=== PATIENT | female | born 2000 | race Caucasian/White ===

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

== ENCOUNTER 2022-08-18 11:36 | Outpatient (CLI) | payer OTHER, SELFPAY ==
--- NOTE | ~2022-08-18 | US_ITS ---
US axilla LT 08/18/2022 12:28 Indication: Enlarged lymph nodes. Procedure: High-resolution Limited ultrasound of the left axilla Comparison: No prior studies for comparison. Findings: There are normal-appearing left axillary lymph nodes, the largest measuring 11 mm. No suspi cious masses to suggest malignancy. Impression: 1: Normal left axillary lymph nodes. BI-RADS CATEGORY 1 - NEGATIVE Reviewed, dictated and finalized at location A. Impression: 1: Normal left axillary lymph nodes. BI-RADS CATEGORY 1 - NEGATIVE
[2022-08-18 12:08] LABS: Hematocrit 40.1 % (37.0-47.0); Hemoglobin 12.7 g/dL (12.0-15.0); Mean Corpuscular HGB Conc 31.7 g/dl (32-36); Mean Corpuscular Hemoglobin 27.6 pg (26-34); Mean Corpuscular Volume 87.2 fl (80-100); Mean Platelet Volume 10.4 fl (7.4-10.4); Platelet Count Result 289 k/mm3 (150-375); Red Cell Distribution Width 13.4 % (11.5-14.5); White Blood Count 10.8 K/mm3 (4.5-10.0)
== END 2022-08-18 11:37 | disposition home or self-care (01) ==
PROVIDERS: PCP Nurse Practitioner; Visit Provider Nurse Practitioner
DX: R59.0 Localized enlarged lymph nodes (principal)
CPT/HCPCS: 36415; 76882; 85027

== ENCOUNTER 2022-09-03 10:24 | Emergency (ER) | payer OTHER, SELFPAY ==
[2022-09-03 10:37] VITALS: BP 136/95; PULSE 95; RESP 16; TEMP 37; O2SAT 100
--- NOTE | 2022-09-03 10:55 | ED.GENADULT ---
HPI - General Adult General Chief complaint: Ear Stated complaint: ear pain/ringing, headache, congestion Time Seen by Provider: 09/03/22 10:46 Source: patient Mode of arrival: ambulatory Limitations: no limitations History of Present Illness HPI narrative: Patient presents today complaining of a one-week history of bilateral ear pain and pressure, nasal congestion, and frontal headache. Denies any fever cough. She has been using [id number] nasal spray without much relief. Related Data Home Medications Medication Instructions Recorded Confirmed drospirenone 3 mg-ethinyl tablet 09/03/22 estradiol 0.02 mg tablet sertraline 100 mg tablet mg 09/03/22 Allergies Allergy/AdvReac Type Severity Reaction Status Date / Time amoxicillin Allergy Severe hives Verified 09/03/22 10:36 Review of Systems Review of Systems: CONSTITUTIONAL: Denies body aches, fever, chills, or sweats. EYES: Denies visual changes, redness, or discharge. ENT: Denies rhinorrhea, sore throat. + Congestion, bilateral ear pain CARDIOVASCULAR: Denies chest pain, palpitations, or edema. RESPIRATORY: Denies cough or dyspnea. GASTROINTESTINAL: Denies abdominal pain, nausea, vomiting, or diarrhea. GENITOURINARY: Denies dysuria or hematuria. SKIN: Denies rash, itching, or wounds. MUSCULOSKELETAL: Denies back pain, joint pain, or myalgia. NEUROLOGIC: Denies numbness, tingling, or weakness.+ headache PSYCH: Denies depression or anxiety. [facility] Past Medical History Medical History (Updated 09/03/22 @ 11:00 by Rachell Kumar, MADELYN, ) Anxiety Bakers cyst Ear infection Surgical History Surgical History Hx of removal of cyst Family History Family History Grandparent Diabetes mellitus Heart disease Hypertension Leukemia Mother Hyperlipidemia due to dietary fat intake Father Hyperlipidemia due to dietary fat intake Hypertension Social History Social History Smoking status: Never smoker Second hand tobacco smoke exposure: No Alcohol intake: never Substance use: never Substance use type: does not use Gender identity (if verbalized by the patient): Female Comments At time of signature, I have reviewed and agree with nursing past medical, surgical, social and family history unless otherwise noted. Please see nursing chart for further information. There is no relevant family history pertinent to the presenting complaint Exam Narrative: GENERAL: Well-appearing, well-nourished, and in no acute distress. HEAD: Normocephalic, atraumatic. EYES: EOMI. No redness or drainage. Conjunctivae normal. ENT: Mucous membranes pink and moist. Nares clear. No rhinorrhea. TMs normal bilaterally with bilateral serous effusions. no frontal or maxillary sinus tenderness. Throat normal. Uvula midline. NECK: Normal AROM. Supple. No lymphadenopathy. CHEST: No respiratory distress. Clear to auscultation. HEART: Regular rate and rhythm. No murmur appreciated. Normal peripheral pulses. EXTREMITIES: Normal range of motion. No edema. SKIN: Warm, dry, no rash. Capillary refill normal. Normal skin turgor. NEURO: No focal deficits. Alert and oriented x3. Gait steady. PSYCH: Normal affect. No signs of depression or anxiety. Course Course Level of Care: Express Care Visit Vital Signs Vital signs: Vital Signs Temperature 98.6 F 09/03/22 10:37 Pulse Rate 95 09/03/22 10:37 Respiratory Rate 16 09/03/22 10:37 Blood Pressure 136/95 H 09/03/22 10:37 Pulse Oximetry 100 09/03/22 10:37 Oxygen Delivery Room Air 09/03/22 10:37 Temperature 98.6 F 09/03/22 10:37 Pulse Rate 95 09/03/22 10:37 Respiratory Rate 16 09/03/22 10:37 Blood Pressure 136/95 H 09/03/22 10:37 Pulse Oximetry 100 09/03/22 10:37 Oxygen Delivery Room A
== END 2022-09-03 11:04 | disposition home or self-care (01) ==
PROVIDERS: Emergency Provider Nurse Practitioner; PCP Nurse Practitioner
DX: J06.9 Acute upper respiratory infection, unspecified (principal)
CPT/HCPCS: 99211; G0463

== ENCOUNTER 2023-01-02 18:19 | Emergency (ER) | payer OTHER, SELFPAY ==
[2023-01-02 18:29] VITALS: BP 139/59; PULSE 109; RESP 16; TEMP 36.7; O2SAT 98
--- NOTE | 2023-01-02 18:44 | ED.URI ---
HPI - URI/Sore Throat General Chief Complaint: Upper Respiratory Infection Stated Complaint: wheezing,shortness of breath,cough,congestion Source: patient and RN notes reviewed History of Present Illness HPI Narrative: 22-year-old female presents to urgent care with complaints of productive cough and wheezing the last 3 days. Patient reports some right ear discomfort. denies any fevers, chills, shortness of breath, chest pain, headache, sore throat vomiting. Patient has used Flonase at home with Minimal relief. Some parts of this dictation were generated by voice recognition software and may contain typographical and/or grammatical inaccuracies. Related Data Home Medications Medication Instructions Recorded Confirmed drospirenone 3 mg-ethinyl 1 tablet PO DAILY 09/03/22 09/03/22 estradiol 0.02 mg tablet sertraline 100 mg tablet 100 mg PO DAILY 09/03/22 09/03/22 Allergies Allergy/AdvReac Type Severity Reaction Status Date / Time amoxicillin Allergy Severe hives Verified 09/03/22 10:36 Review of Systems Review of Systems: Pertinent positives and pertinent negatives per HPI. [facility] Past Medical History Medical History (Updated 01/02/23 @ 18:45 by Margo Irene, ROSE) Anxiety Bakers cyst Ear infection Surgical History Surgical History Hx of removal of cyst Family History Family History Grandparent Diabetes mellitus Heart disease Hypertension Leukemia Mother Hyperlipidemia due to dietary fat intake Father Hyperlipidemia due to dietary fat intake Hypertension Social History Social History Smoking status: Never smoker Second hand tobacco smoke exposure: No Alcohol intake: never Substance use: never Substance use type: does not use Gender identity (if verbalized by the patient): Female Comments At the time of my signature, I reviewed and agree with the nursing past medical, surgical, social, and family history. There is no relevant family history pertinent to the patient complaint. Exam Narrative: GENERAL: This is a well-nourished, well-developed patient, in no apparent distress. HEAD: normocephalic, atraumatic. EYES: PERRL. Sclera clear/white. Vision is grossly intact. EARS: External ears normal, auditory canals clear and without drainage, TMs normal without perforation. Hearing grossly intact. NOSE: External nose normal with no obvious nasal discharge, nares without redness, no rhinorrhea. THROAT: Mucous membranes moist, posterior pharynx clear. NECK: Neck supple, non-tender without lymphadenopathy, masses or thyromegaly. CARDIOVASCULAR: Regular rate and rhythm without murmurs, gallops, or rubs. RESPIRATORY: Clear to auscultation. Breath sounds equal bilaterally. No wheezes, rales, or rhonchi. GASTROINTESTINAL: Abdomen soft, non-tender, nondistended. Bowel sounds are active. No hepato-splenomegaly, or palpable masses. No guarding. SKIN: warm, intact with no suspicious lesions or rash, good texture and turgor. NEURO: awake, alert, and oriented to person, place and time. There were no obvious focal neurologic abnormalities. Course Course Level of Care: Express Care Visit Vital Signs Vital signs: Vital Signs Temperature 98.1 F 01/02/23 18:29 Pulse Rate 109 H 01/02/23 18:29 Respiratory Rate 16 01/02/23 18:29 Blood Pressure 139/59 L 01/02/23 18:29 Pulse Oximetry 98 01/02/23 18:29 Oxygen Delivery Room Air 01/02/23 18:29 Temperature 98.1 F 01/02/23 18:29 Pulse Rate 109 H 01/02/23 18:29 Respiratory Rate 16 01/02/23 18:29 Blood Pressure 139/59 L 01/02/23 18:29 Pulse Oximetry 98 01/02/23 18:29 Oxygen Delivery Room Air 01/02/23 18:29 reviewed MDM - URI/Sore Throat MDM Narrative Medical decision making narrative: Take steroids as directed. May
== END 2023-01-02 18:47 | disposition home or self-care (01) ==
PROVIDERS: Emergency Provider Nurse Practitioner Family; PCP Nurse Practitioner
DX: J40 Bronchitis, not specified as acute or chronic (principal)
CPT/HCPCS: 99213; G0463

== ENCOUNTER 2023-02-09 17:59 | Emergency (ER) | payer OTHER, SELFPAY ==
--- NOTE | ~2023-02-09 | XR_ITS ---
EXAMINATION: XR foot LT min 3V DATE: 02/09/2023 18:19 INDICATION: Left foot pain. Injury. TECHNIQUE: 4 views of left foot were obtained. COMPARISON: Left ankle radiographs 04/27/2018 FINDINGS: Bone alignment is normal. No fracture. Joint spaces are well maintained. IMPRESSION: 1. Normal left foot. Reviewed, dictated and finalized at location E. IMPRESSION: 1. Normal left foot.
[2023-02-09 18:21] VITALS: BP 135/73; PULSE 119; RESP 16; TEMP 36.8; O2SAT 98
--- NOTE | 2023-02-09 18:22 | ED.LOWEXIN ---
HPI - Extremity Injury (Lower) General Chief Complaint: Extremity Injury, Lower Stated Complaint: INJURED L FOOT Time Seen by Provider: 02/09/23 18:22 Source: patient Mode of arrival: ambulatory Limitations: no limitations History of Present Illness HPI Narrative: 22-year-old female presents with complaint of pain swelling, bruising to dorsal aspect of left foot. Patient reports that she just got a new 40 oz [employer] metal cup. She filled it with ice and water and then it slipped out of her hands and dropped on to left foot. Ambulatory with slight limp. Patient concerned for fracture. Range of motion decreased due to pain. Distal neurovascularly intact. All systems reviewed and negative except as noted above. Related Data Home Medications Medication Instructions Recorded Confirmed drospirenone 3 mg-ethinyl 1 tablet PO DAILY 09/03/22 02/09/23 estradiol 0.02 mg tablet sertraline 100 mg tablet 100 mg PO DAILY 09/03/22 02/09/23 Allergies Allergy/AdvReac Type Severity Reaction Status Date / Time amoxicillin Allergy Severe hives Verified 09/03/22 10:36 Review of Systems Review of Systems: CONSTITUTIONAL: Denies fever, chills, or sweats. EYES: Denies visual changes, redness, or discharge. ENT: Denies rhinorrhea, congestion, sore throat, or otalgia. CARDIOVASCULAR: Denies chest pain, palpitations, or edema. RESPIRATORY: Denies cough or dyspnea. GASTROINTESTINAL: Denies abdominal pain, nausea, vomiting, or diarrhea. GENITOURINARY: Denies dysuria or hematuria. SKIN: Denies rash or itching. MUSCULOSKELETAL: Reports pain, swelling and bruising to dorsal aspect left foot. NEUROLOGIC: Denies headache, numbness, or weakness. PSYCHIATRIC: Denies anxiety or depression. All other systems reviewed are negative, except as documented in HPI. [facility] Past Medical History Medical History (Updated 02/09/23 @ 18:31 by Ashley Troncoso NP) Anxiety Bakers cyst Ear infection Surgical History Surgical History Hx of removal of cyst Family History Family History Grandparent Diabetes mellitus Heart disease Hypertension Leukemia Mother Hyperlipidemia due to dietary fat intake Father Hyperlipidemia due to dietary fat intake Hypertension Social History Social History Smoking status: Never smoker Second hand tobacco smoke exposure: No Alcohol intake: never Substance use: never Substance use type: does not use Gender identity (if verbalized by the patient): Female Comments At time of signature, agree with nursing past medical, surgical, social and family history. There is no relevant family history pertinent to the presenting complaint. Exam Narrative: GENERAL: This is a well-nourished, well-developed patient, in no apparent distress. HEAD: normocephalic, atraumatic. EYES: PERRL. Sclera clear/white. Vision is grossly intact. EARS: External ears normal NOSE: External nose normal NECK: Neck supple, non-tender without lymphadenopathy, masses or thyromegaly. CARDIOVASCULAR: Regular rate and rhythm without murmurs, gallops, or rubs. RESPIRATORY: Clear to auscultation. Breath sounds equal bilaterally. No wheezes, rales, or rhonchi. SKIN: warm, Dry, intact with no suspicious lesions or rash, good texture and turgor. NEURO: awake, alert, and oriented to person, place and time. There were no obvious focal neurologic abnormalities. EXTREMITIES: Swelling and bruising noted to dorsal aspect left foot. Tender on palpation to 2nd 3rd 4th metatarsals. Distal neurovascularly intact. Range of motion decreased due to pain. Course Course Level of Care: Express Care Visit Vital Signs Vital signs: Vital Signs Temperature 36.8 C 02/09/23 18:21 Pulse Rate 119 H 02/09/23 18:21 Respiratory Rate 16 02/09/23 18:
== END 2023-02-09 18:37 | disposition home or self-care (01) ==
PROVIDERS: Emergency Provider Nurse Practitioner Family; PCP Nurse Practitioner
DX: S90.32XA Contusion of left foot, initial encounter (principal); W20.8XXA Other cause of strike by thrown, projected or falling object, initial encounter; F41.9 Anxiety disorder, unspecified
CPT/HCPCS: 73630; 99213; G0463

== ENCOUNTER 2023-06-15 17:45 | Emergency (ER) | payer OTHER, SELFPAY ==
[2023-06-15 18:02] VITALS: BP 144/73; PULSE 100; RESP 18; TEMP 36.7; O2SAT 98
--- NOTE | 2023-06-15 18:16 | ED.FEMALEGU ---
HPI - Female Genitourinary General Chief complaint: Urogenital-Female Stated complaint: Urinary Problems Source: patient and RN notes reviewed Mode of arrival: ambulatory Limitations: no limitations History of Present Illness HPI Narrative: 22-year-old female presents concern for bladder pressure for several days. She denies frequency, urgency, dysuria. She reports her last menstrual period was normal in was 2 weeks ago. She reports she did have some spotting couple of days ago. She denies abnormal vaginal discharge, itching. She denies chance of , reports she is on control in [facility]. She reports normal bowel movements, denies constipation. She denies nausea, vomiting, fever, chills, sweats, back pain MD elicited complaint: UTI Related Data Home Medications Medication Instructions Recorded Confirmed sertraline 100 mg tablet 100 mg PO DAILY 09/03/22 06/15/23 norethindrone 1 mg-ethinyl 1 tablet PO DAILY 06/15/23 06/15/23 estradiol 20 mcg (24)-iron 75 mg (4) tablet (Anabelle 24 Fe) Allergies Allergy/AdvReac Type Severity Reaction Status Date / Time amoxicillin Allergy Severe hives Verified 06/15/23 17:50 Review of Systems Review of Systems: CONSTITUTIONAL: Denies malaise, chills, sweats, or fever. CARDIOVASCULAR: Denies chest pain, palpitations, or edema. RESPIRATORY: Denies cough or dyspnea. GASTROINTESTINAL: Denies abdominal pain, nausea, vomiting, diarrhea GENITOURINARY: Reports dysuria, frequency, urgency, suprapubic pressure. Denies flank pain or hematuria. SKIN: Denies rash or itching. MUSCULOSKELETAL: Denies back pain or myalgia. All systems reviewed & are unremarkable except as noted in HPI and below PMFSH Past Medical History Medical History (Updated 06/15/23 @ 18:18 by Pamela Kim NP) Anxiety Bakers cyst Ear infection Surgical History Surgical History Hx of removal of cyst Family History Family History Grandparent Diabetes mellitus Heart disease Hypertension Leukemia Mother Hyperlipidemia due to dietary fat intake Father Hyperlipidemia due to dietary fat intake Hypertension Social History Social History Smoking status: Never smoker Second hand tobacco smoke exposure: No Alcohol intake: never Substance use: never Substance use type: does not use Gender identity (if verbalized by the patient): Female Comments At time of signature, agree with nursing past medical, surgical, social and family history. There is no relevant family history pertinent to the presenting complaint Exam Narrative: GENERAL: Well-appearing, well-nourished, and in no acute distress. HEAD: Normocephalic. EYES: PERRLA, conjunctivae clear. NECK: Supple. No lymphadenopathy CHEST: Clear to auscultation. No respiratory distress. HEART: Regular rate and rhythm. ABDOMEN: Soft, nontender upon palpation, nondistended, normal active bowel sounds, no palpable or pulsatile masses, no guarding. No CVA tenderness SKIN: Warm, dry, no rash. NEURO: Alert and oriented x3. PSYCH: Normal mood and affect Course Course Emergency Course: Patient's urinalysis and exam were normal. Patient was advised to follow-up with her primary care provider or Gynecology if her symptoms persist. Patient is aware of diagnosis, understands and agrees to treatment plan. Anticipatory guidance given. Patient agrees to follow-up as directed and is aware of reasons to seek care at the emergency department. Portions of this record may have been created with voice recognition software Level of Care: Express Care Visit Vital Signs Vital signs: Vital Signs Temperature 98.1 F 06/15/23 18:02 Pulse Rate 100 06/15/23 18:02 Respiratory Rate 18 06/15/23 18:02 Blood Pressure 144/73 H 06/15/23 18:02
== END 2023-06-15 18:20 | disposition home or self-care (01) ==
PROVIDERS: Emergency Provider Nurse Practitioner; PCP Nurse Practitioner
DX: R10.30 Lower abdominal pain, unspecified (principal); F41.9 Anxiety disorder, unspecified
CPT/HCPCS: 81003; 99212; G0463

== ENCOUNTER 2023-10-14 19:08 | Emergency (ER) | payer OTHER, SELFPAY ==
[2023-10-14 19:16] VITALS: BP 110/50; PULSE 106; RESP 16; TEMP 36.7; O2SAT 96
--- NOTE | 2023-10-14 19:17 | ED.GENADULT ---
HPI - General Adult General Chief complaint: Ear Stated complaint: Ear pain Source: patient, RN notes reviewed and old records reviewed Mode of arrival: ambulatory Limitations: no limitations History of Present Illness HPI narrative: 23-year-old female presents to [facility] with complaints of right ear pain that startedyesterday. Patient states has had a lot of congestion for 3 weeks. Patient not taking anything for symptoms. MD complaint: Earache Onset (ago): day(s) (1-2) Related Data Home Medications Medication Instructions Recorded Confirmed norethindrone 1 mg-ethinyl See Rx Instructions .Route .COMPLEX 10/14/23 10/14/23 estradiol 20 mcg (24)-iron 75 mg (4) tablet () sertraline 50 mg tablet 50 mg PO DAILY 10/14/23 10/14/23 Allergies Allergy/AdvReac Type Severity Reaction Status Date / Time amoxicillin Allergy Severe hives Verified 06/15/23 17:50 Review of Systems Constitutional: Constitutional: Reports no additional constitutional complaints, Denies body ache(s), Denies chills, Denies fatigue, Denies fever(s) and Denies headache(s) Eyes: Eyes: Reports no additional eye complaints and Denies blurry vision ENT: Reports system reviewed and no additional complaints, except as documented, Denies vertigo, Denies dizziness, Denies ear discharge, Reports otalgia, Denies facial pain, Denies headache(s), Reports nasal congestion, Denies nasal discharge, Denies sinus pain, Denies sinus pressure and Denies sore throat Cardiovascular: Cardiovascular: Reports no additional cardiovascular complaints, Denies chest pain, Denies chest pain at rest, Denies rapid heart rate and Denies dyspnea Respiratory: Respiratory: Reports no additional respiratory complaints, Denies chest congestion, Denies cough, Denies pain on inspiration, Denies pain with cough and Denies dyspnea Gastrointestinal: Gastrointestinal: Denies abdominal pain, Denies diarrhea, Denies nausea and Denies vomiting Integumentary/Breasts: Skin/Breast: Denies rash Neurologic: Reports system reviewed and no additional complaints, except as documented, Denies vertigo, Denies dizziness and Denies headache(s) Endocrine: Endocrine: Denies fatigue [facility] Past Medical History Medical History (Updated 10/14/23 @ 19:28 by Fawn Valente APRN) Anxiety Bakers cyst Ear infection Surgical History Surgical History Hx of removal of cyst Family History Family History Grandparent Diabetes mellitus Heart disease Hypertension Leukemia Mother Hyperlipidemia due to dietary fat intake Father Hyperlipidemia due to dietary fat intake Hypertension Social History Social History Smoking status: Never smoker Second hand tobacco smoke exposure: No Alcohol intake: never Substance use: never Substance use type: does not use Gender identity (if verbalized by the patient): Female Comments At the time of my signature, I reviewed and agree with the nursing past medical, surgical, social, and family history. There is no relevant family history pertinent to the patient complaint. Exam Const: General: cooperative, healthy appearing, no acute distress and well nourished Nutritional Appearance: well nourished Orientation/consciousness: patient oriented x3 Limitations: no limitations HENMT: Head: normal to inspection and normocephalic Ears: external ears normal, TM's normal bilaterally, mastoids normal and Abnormal EAC present erythema on the right and EAC tenderness on the right Face/Nose/Sinus: normal facial exam Face and sinus: normal facial exam Mouth: Yes Normal oral and palatal mucosa present, Yes oropharynx normal and Yes moist mucous membranes Throat: tonsils normal, uvula midline and no uvular edema Eyes: General: appearance normal, both eyes and all related struct
== END 2023-10-14 19:30 | disposition home or self-care (01) ==
PROVIDERS: Emergency Provider Registered Nurse; PCP Nurse Practitioner
DX: H60.391 Other infective otitis externa, right ear (principal)
CPT/HCPCS: 99213; G0463

== ENCOUNTER 2023-12-26 18:14 | Emergency (ER) | payer BC, SELFPAY ==
[2023-12-26 18:26] VITALS: BP 123/96; PULSE 110; RESP 20; TEMP 37.2; O2SAT 98
--- NOTE | 2023-12-26 19:02 | ED.GENADULT ---
HPI - General Adult General Chief complaint: Abdominal Pain Stated complaint: Stomach Pain Source: patient, RN notes reviewed and old records reviewed Mode of arrival: ambulatory Limitations: no limitations History of Present Illness HPI narrative: 23-year-old female presents to [facility] with complaint of diarrhea and abdominal pain that started this a.m.. Patient states had 3-4 bouts of diarrhea earlier today that have now resolved but has continues to have abdominal pain. Patient states pain is worsening throughout the day. Patient states pain is worse with walking or movement. Related Data Home Medications Medication Instructions Recorded Confirmed norethindrone 1 mg-ethinyl 1 tablet PO DAILY 12/26/23 12/26/23 estradiol 20 mcg (24)-iron 75 mg (4) tablet () Allergies Allergy/AdvReac Type Severity Reaction Status Date / Time amoxicillin Allergy Severe hives Verified 12/26/23 19:31 Review of Systems Constitutional: Constitutional: Reports no additional constitutional complaints, Denies body ache(s), Denies chills, Denies fatigue, Denies fever(s) and Denies headache(s) Eyes: Eyes: Reports no additional eye complaints and Denies blurry vision ENT: Reports system reviewed and no additional complaints, except as documented, Denies vertigo, Denies dizziness, Denies ear discharge, Denies otalgia, Denies facial pain, Denies headache(s), Denies nasal congestion, Denies nasal discharge, Denies sinus pain, Denies sinus pressure and Denies sore throat Cardiovascular: Cardiovascular: Reports no additional cardiovascular complaints, Denies chest pain, Denies chest pain at rest, Denies rapid heart rate and Denies dyspnea Respiratory: Respiratory: Reports no additional respiratory complaints, Denies chest congestion, Denies cough, Denies pain on inspiration, Denies pain with cough and Denies dyspnea Gastrointestinal: Gastrointestinal: Reports abdominal pain, Reports diarrhea, Denies nausea and Denies vomiting Integumentary/Breasts: Skin/Breast: Denies rash Neurologic: Reports system reviewed and no additional complaints, except as documented, Denies vertigo, Denies dizziness and Denies headache(s) Endocrine: Endocrine: Denies fatigue [facility] Past Medical History Medical History (Updated 12/26/23 @ 19:42 by Fawn Valente APRN) Anxiety Bakers cyst Ear infection Surgical History Surgical History Hx of removal of cyst Family History Family History Grandparent Diabetes mellitus Heart disease Hypertension Leukemia Mother Hyperlipidemia due to dietary fat intake Father Hyperlipidemia due to dietary fat intake Hypertension Social History Social History Smoking status: Never smoker Second hand tobacco smoke exposure: No Alcohol intake: never Substance use: never Substance use type: does not use Gender identity (if verbalized by the patient): Female Comments At the time of my signature, I reviewed and agree with the nursing past medical, surgical, social, and family history. There is no relevant family history pertinent to the patient complaint. Exam Const: General: cooperative, healthy appearing, no acute distress and well nourished Nutritional Appearance: well nourished Orientation/consciousness: patient oriented x3 Limitations: no limitations HENMT: Head: normal to inspection and normocephalic Ears: external ears normal and mastoids normal Face/Nose/Sinus: normal facial exam Face and sinus: normal facial exam Mouth: Yes Normal oral and palatal mucosa present, Yes oropharynx normal and Yes moist mucous membranes Throat: tonsils normal, uvula midline and no uvular edema Eyes: General: appearance normal, both eyes and all related structures Sclera: sclerae normal Pupils: Equal, round and reactive pupil
== END 2023-12-26 19:07 | disposition short-term general hospital (02) ==
PROVIDERS: Emergency Provider Registered Nurse; PCP Nurse Practitioner
DX: R10.9 Unspecified abdominal pain (principal)
CPT/HCPCS: 99212; G0463

== ENCOUNTER 2023-12-26 19:25 | Emergency (ER) | payer BC, SELFPAY ==
[2023-12-26 19:27] VITALS: BP 124/109; PULSE 113; RESP 22; TEMP 37.3; O2SAT 98
[2023-12-26 20:13] LABS: Basophils Percent Auto 0.2 % (0.2-1.2); Eosinophils Absolute Auto 0.2 K/mm3 (0-0.3); Eosinophils Percent Auto 1.7 % (0-4.4); Hematocrit 38.7 % (37.0-47.0); Hemoglobin 12.2 g/dL (12.0-15.0); Immature Granulocyte Absolute 0.03 K/mm3 (0.00-0.031); Immature Granulocyte Percent A 0.3 % (0-0.5); Lymphocytes Absolute Auto 2.49 K/mm3 (0.9-3.2); Lymphocytes Percent Auto 27.7 % (18.3-44.2); Mean Corpuscular HGB Conc 31.5 g/dl (32-36); Mean Corpuscular Hemoglobin 26.2 pg (26-34); Mean Platelet Volume 10.4 fl (7.4-10.4); Monocytes Absolute Auto 0.8 K/mm3 (0.1-0.6); Neutrophils Absolute Auto 5.5 K/mm3 (1.3-6.7); Neutrophils Percent Auto 61.1 % (45.5-73.1); Platelet Count Result 270 k/mm3 (150-375); Red Blood Count 4.66 M/mm3 (4.2-5.4); Red Cell Distribution Width 14.5 % (11.5-14.5)
[2023-12-26 20:19] LABS: Appearance Urine Clear (Clear); Bacteria Urine None Seen /hpf; Bilirubin Urine Negative (Negative); Blood Urine Negative (Negative); Color Urine Yellow (Yellow); Glucose Urine UA Negative (Negative); Ketones Urine Negative (Negative); Leukocyte Esterase Ur Trace LEU/UL (Negative); Nitrate Urine Negative (Negative); Non Pathogenic Casts 0-2; Protein Urine Negative (Negative); RBC Urine 0-2 /hpf (0-2); Squamous Epithelial Cell Urine Occasional /hpf (Few); Urobilinogen Urine 0.2 mg/dL (<2.0); WBC Urine 0-5 /hpf (0-3); pH Urine 5.5 (5.0-9.0)
[2023-12-26 20:23] LABS: Alanine Aminotransferase 24 U/L (6-35); Albumin Level 3.8 g/dL (3.5-5.1); Alkaline Phosphatase 105 U/L (38-126); Anion Gap 8 mmol/L (8-16); Aspartate Amino Transferase 31 U/L (14-36); Bilirubin,Total 0.3 mg/dL (0.2-1.3); Blood Urea Nitrogen 8 mg/dL (7-17); Calcium 8.6 mg/dL (8.4-10.2); Carbon Dioxide 22 mmol/L (22-30); Chloride 109 mmol/L (98-107); Estimated CRCL calculation 166 ml/min; Estimated Glomerular Filt Rate > 60; Glucose 99 mg/dL (65-110); Lipase 86 U/L (23-300); Potassium 3.3 mmol/L (3.4-5.0); Sodium 139 mmol/L (137-145)
[2023-12-26 20:24] LABS: Add Urine Microscopic? YES
[2023-12-26 20:33] LABS: Influenza A QL RT-PCR Negative (Negative); Influenza B QL RT-PCR Negative (Negative); RSV RNA, RT-PCR Negative (Negative); SARS-CoV-2 RNA PCR Negative (Negative)
[2023-12-26 21:03] VITALS: PULSE 95; RESP 18; O2SAT 100
--- NOTE | 2023-12-26 21:29 | ED.GENADULT ---
HPI - General Adult General Chief complaint: Abdominal Pain Stated complaint: abd pain/diarehhia Time Seen by Provider: 12/26/23 19:35 History of Present Illness HPI narrative: This is a 23-year-old female presenting to the ED for 2 days of abdominal pain. Started 2 days ago she developed a sharp pain all the way across the top of her abdomen. she has no pain at the moment but the pain is worse when she stands up. this is associated with episode of nausea and that she later developed diarrhea. Patient denies fevers chills chest pain urinary symptoms. Last menstrual period was a week and half ago. Patient has significant anxiety and her mother is concerned about IBS. No on else at home is sick. Related Data Home Medications Medication Instructions Recorded Confirmed norethindrone 1 mg-ethinyl 1 tablet PO DAILY 12/26/23 12/26/23 estradiol 20 mcg (24)-iron 75 mg (4) tablet () Allergies Allergy/AdvReac Type Severity Reaction Status Date / Time amoxicillin Allergy Severe hives Verified 12/26/23 19:31 PENDING SALE TO [facility] Past Medical History Medical History (Updated 12/26/23 @ 21:36 by Terrence Dougherty MD) Anxiety Bakers cyst Ear infection Obesity Surgical History Surgical History Hx of removal of cyst Family History Family History Grandparent Diabetes mellitus Heart disease Hypertension Leukemia Mother Hyperlipidemia due to dietary fat intake Father Hyperlipidemia due to dietary fat intake Hypertension Social History Social History Smoking status: Never smoker Second hand tobacco smoke exposure: No Alcohol intake: never Substance use: never Substance use type: does not use Gender identity (if verbalized by the patient): Female Exam Narrative: APPEARANCE: No apparent distress. Obese Head: atraumatic. EYES: EOMI, NOSE: Atraumatic NECK: Trachea midline RESPIRATORY: No increased rate of breathing clear to auscultation CARDIOVASCULAR: RRR, ABDOMINAL: abdomen is soft nontender with no guarding rebound. No CVA tenderness MUSCULOSKELETAl: No obvious deformities NEURO: Alert. Moving 4/4 extremities SKIN:: Warm, dry. Normal color PSYCHIATRIC: Normal affect Course Vital Signs Vital signs: Vital Signs Temperature 99.1 F 12/26/23 19:27 Pulse Rate 113 H 12/26/23 19:27 Respiratory Rate 22 H 12/26/23 19:27 Blood Pressure 124/109 H 12/26/23 19:27 Pulse Oximetry 98 12/26/23 19:27 Oxygen Delivery Room Air 12/26/23 19:27 Temperature 99.1 F 12/26/23 19:27 Pulse Rate 95 12/26/23 21:03 Respiratory Rate 18 12/26/23 21:03 Blood Pressure 124/109 H 12/26/23 19:27 Pulse Oximetry 100 12/26/23 21:03 Oxygen Delivery Room Air 12/26/23 19:27 Medical Decision Making MDM Narrative Medical decision making narrative: -Course: 23-year-old presenting atypical abdominal pain. Pain is across her abdomen but only when she stands and she believes it is associated with nausea vomiting diarrhea. On physical exam she has no abdominal tenderness or any physical exam findings. Her lab work was normal including abdominal labs viral panel and urine. vital signs are stable. Patient was given symptomatic treatment. CT abdomen pelvis was considered but she has a benign abdominal exam and is young female we have decided to hold off as she has follow-up with her primary care physician in 2 days. Patient discharged. -DDX includes but is not limited to: gastritis, biliary colic, abdominal wall pain, gastroenteritis -Co-morbidities complicating care: morbid obesity anxiety -Social determinants of health: patient works as a lives with her fiance -Hx from independent Sources: parents at bedside -Independent interpretation of studies: labs reviewed normal limits -Dx tests considered but not order
--- NOTE | 2023-12-26 22:09 | PC.NURSE ---
went into the room to start IV and give medications. pt and family questioning why because they thought they were getting discharged. spoke with Dr. Dougherty about medication. He states pt can be discharged without getting medications.
== END 2023-12-26 22:17 | disposition home or self-care (01) ==
PROVIDERS: Emergency Medicine; Emergency Provider Emergency Medicine; PCP Nurse Practitioner
DX: R10.9 Unspecified abdominal pain (principal); Z20.822 Contact with and (suspected) exposure to COVID-19; F41.9 Anxiety disorder, unspecified
CPT/HCPCS: 36415; 80053; 81025; 83690; 85025; 87637; 99283

== ENCOUNTER 2024-04-10 17:58 | Emergency (ER) | payer BC, SELFPAY ==
[2024-04-10 18:07] VITALS: BP 157/87; PULSE 116; RESP 20; TEMP 37; O2SAT 97
[2024-04-10 18:08] VITALS: BP 157/87; PULSE 116; RESP 20; TEMP 37; O2SAT 97
--- NOTE | 2024-04-10 18:22 | ED.EAR ---
HPI - Ear Problem General Chief complaint: Ear Stated complaint: Ear Pain Time Seen by Provider: 04/10/24 18:12 Source: patient and RN notes reviewed Mode of arrival: ambulatory Limitations: no limitations History of Present Illness HPI Narrative: Patient presents today complaining of complaining of intermittent right ear pain x2 weeks with some itching. Normal hearing. No drainage. No other URI symptoms. She has tried some Flonase without relief. Patient's history of ear drum patch on the right of a child as well as bilateral ear tubes as a child. Related Data Home Medications Medication Instructions Recorded Confirmed norethindrone 1 mg-ethinyl 1 tablet PO DAILY 12/26/23 04/10/24 estradiol 20 mcg (24)-iron 75 mg (4) tablet () bupropion HCl 150 mg 24 hr tablet, 150 mg PO DAILY 04/10/24 04/10/24 extended release Allergies Allergy/AdvReac Type Severity Reaction Status Date / Time amoxicillin Allergy Severe hives Verified 12/26/23 19:31 Review of Systems Review of Systems: CONSTITUTIONAL: Denies body aches, fever, chills, or sweats. EYES: Denies visual changes, redness, or discharge. ENT: Denies rhinorrhea, congestion, sore throat. + right ear pain and itching CARDIOVASCULAR: Denies chest pain, palpitations, or edema. RESPIRATORY: Denies cough or dyspnea. GASTROINTESTINAL: Denies abdominal pain, nausea, vomiting, or diarrhea. GENITOURINARY: Denies dysuria or hematuria. SKIN: Denies rash, itching, or wounds. MUSCULOSKELETAL: Denies back pain, joint pain, or myalgia. NEUROLOGIC: Denies headache, numbness, tingling, or weakness. PSYCH: Denies depression or anxiety. [facility] Past Medical History Medical History Anxiety Bakers cyst Ear infection Obesity Surgical History Surgical History Hx of removal of cyst Family History Family History Grandparent Diabetes mellitus Heart disease Hypertension Leukemia Mother Hyperlipidemia due to dietary fat intake Father Hyperlipidemia due to dietary fat intake Hypertension Social History Social History Smoking status: Never smoker Second hand tobacco smoke exposure: No Alcohol intake: never Substance use: never Substance use type: does not use Gender identity (if verbalized by the patient): Female Comments At time of signature, I have reviewed and agree with nursing past medical, surgical, social and family history unless otherwise noted. Please see nursing chart for further information. There is no relevant family history pertinent to the presenting complaint Exam Narrative: GENERAL: Well-appearing, well-nourished, and in no acute distress. HEAD: Normocephalic, atraumatic. EYES: EOMI. No redness or drainage. Conjunctivae normal. ENT: Mucous membranes pink and moist. Left TM and canal normal. Right TM without evidence of infection, with mild serous effusion. Canal normal. NECK: Normal AROM. CHEST: No respiratory distress. EXTREMITIES: Normal range of motion. No edema. SKIN: Warm, dry, no rash. Capillary refill normal. Normal skin turgor. NEURO: No focal deficits. Alert and oriented x3. Gait steady. PSYCH: Normal affect. No signs of depression or anxiety. Course Course Level of Care: Express Care Visit Vital Signs Vital signs: Vital Signs Temperature 98.6 F 04/10/24 18:07 Pulse Rate 116 H 04/10/24 18:07 Respiratory Rate 20 04/10/24 18:07 Blood Pressure 157/87 H 04/10/24 18:07 Pulse Oximetry 97 04/10/24 18:07 Oxygen Delivery Room Air 04/10/24 18:07 Temperature 98.6 F 04/10/24 18:08 Pulse Rate 116 H 04/10/24 18:08 Respiratory Rate 20 04/10/24 18:08 Blood Pressure 157/87 H 04/10/24 18:08 Pulse Oximetry 97 04/10/24 18:08
== END 2024-04-10 18:30 | disposition home or self-care (01) ==
PROVIDERS: Emergency Provider Nurse Practitioner
DX: H65.01 Acute serous otitis media, right ear (principal); F41.9 Anxiety disorder, unspecified; E66.9 Obesity, unspecified; Z68.42 Body mass index [BMI] 45.0-49.9, adult
CPT/HCPCS: 99213; G0463

== ENCOUNTER 2024-11-25 17:35 | Emergency (ER) | payer BC, SELFPAY ==
--- NOTE | 2024-11-25 17:37 | ED_ITS ---
HPI - URI/Sore Throat General Chief Complaint: Upper Respiratory Infection Stated Complaint: Sore Throat Source: patient and RN notes reviewed Mode of arrival: ambulatory Limitations: no limitations History of Present Illness HPI Narrative: Patient is a 24-year-old female who presents to the [facility] with complaints sore throat over the past 2 weeks. She states that the sore throat continues to worsen over time. She had influenza a a couple weeks ago. She states that at that time, she had a mild sore throat, body aches, and congestion. She states that the other symptoms went away while the sore throat worsened. Patient also endorses a frequent nonproductive cough and postnasal drip. Denies recent fevers. Related Data Home Medications ?Medication ?Instructions ?Recorded ?Confirmed ?Last Taken ?Type norethindrone 1 mg-ethinyl 1 tablet PO DAILY 12/26/23 11/25/24 Unknown History estradiol 20 mcg (24)-iron 75 mg (4) tablet () bupropion HCl 150 mg 24 hr tablet, 150 mg PO DAILY 04/10/24 11/25/24 Unknown History extended release Allergies Allergy/AdvReac Type Severity Reaction Status Date / Time amoxicillin Allergy Severe hives Verified 11/25/24 17:41 Review of Systems Review of Systems: CONSTITUTIONAL: Denies fever, chills, or sweats. EYES: Denies visual changes, redness, or discharge. ENT: Denies otalgia. Reports sore throat and postnasal drip. CARDIOVASCULAR: Denies chest pain, palpitations, or edema. RESPIRATORY: Reports cough but denies dyspnea. GASTROINTESTINAL: Denies abdominal pain, nausea, vomiting, or diarrhea. GENITOURINARY: Denies dysuria or hematuria. SKIN: Denies rash or itching. MUSCULOSKELETAL: Denies back pain, joint pain, or myalgia. NEUROLOGIC: Denies headache, numbness, or weakness. Pertinent positives per HPI. [facility] Past Medical History Medical History Obesity Anxiety Bakers cyst Ear infection Surgical History Surgical History Hx of removal of cyst Family History Family History Grandparent Diabetes mellitus Heart disease Hypertension Leukemia Mother Hyperlipidemia due to dietary fat intake Father Hyperlipidemia due to dietary fat intake Hypertension Social History Social History Smoking status: Never smoker Second hand tobacco smoke exposure: No Alcohol intake: never Substance use: never Substance use type: does not use Gender identity (if verbalized by the patient): Female Comments At the time of my signature, I reviewed and agree with the nursing past medical, surgical, social, and family history. There is no relevant family history pertinent to the patient complaint. Exam Narrative: GENERAL: This is a well-nourished, well-developed patient, in no apparent distress. HEAD: normocephalic, atraumatic. EYES: PERRL. Sclera clear/white. Vision is grossly intact. EARS: External ears normal, auditory canals clear and without drainage, TMs normal without perforation. Hearing grossly intact. NOSE: External nose normal with no obvious nasal discharge, nares without redness, no rhinorrhea. THROAT: Mucous membranes moist, oropharyngeal erythema without exudate or ulceration. NECK: Neck supple, non-tender without lymphadenopathy, masses or thyromegaly. CARDIOVASCULAR: Regular rate and rhythm without murmurs, gallops, or rubs. RESPIRATORY: Clear to auscultation. Breath sounds equal bilaterally. No wheezes, rales, or rhonchi. GASTROINTESTINAL: Abdomen soft, non-tender, nondistended. Bowel sounds are active. No hepato-splenomegaly, or palpable masses. No guarding. SKIN: warm, intact with no suspicious lesions or rash, good texture and turgor. NEURO: awake, alert, and oriented to person, place and time. There were no obvious focal neurologic abnormalities. EXTREMITIES: No clubbing, cyanosis, or edema. No joint tenderness, effusion, or edema noted. BACK: Nontender without deformity or crepitance. No flank tenderness. Course Course Level of Care: Express Care Visit Vital Signs Vital signs: Vital Signs Temperature 98 F 11/25/24 17:47 Pulse Rate 108 H 11/25/24 17:47 Respiratory Rate 16 11/25/24 17:47 Blood Pressure 131/83 11/25/24 17:47 Pulse Oximetry 100 11/25/24 17:47 Temperature 98 F 11/25/24 17:47 Pulse Rate 108 H 11/25/24 17:47 Respiratory Rate 16 11/25/24 17:47 Blood Pressure 131/83 11/25/24 17:47 Pulse Oximetry 100 11/25/24 17:47 Reviewed MDM - URI/Sore Throat MDM Narrative Medical decision making narrative: Rapid strep is negative in the office; however we will send to the lab for confirmation; there is a small percentage chance that it can come back positive; if it is, we will call you in 2-3days; and your prescription will be call in to your pharmacy. However, there is NO indication for antibiotic at this time. -Increase your fluids and Vitamin C. -Oral rinses such as: Salt water gargles and/or may use topical anesthetic (eg. Chloraseptic spray) or lozenges to relieve dryness or throat pain. -Take tylenol and ibuprofen as needed for pain and fever as directed. 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 -Follow up with primary care provider in 2-3 days if condition is not improving or seek ER visit if your child starts breathing fast/has trouble breathing, is not drinking enough fluids, muffle voice, difficulty opening the mouth or will not wake up or will not interact with you. Differential Diagnosis Differential diagnosis: Likely upper respiratory infection, viral infection, pharyngitis and other (strep) Lab Data Attestation: I reviewed the patient's lab results. Critical Care Time Critical Care Time Critical Care Time: No Discharge Plan Discharge Clinical Impression: Acute viral pharyngitis Patient Disposition: Home, Self-Care Condition: Stable Instructions: Pharyngitis (ED) Additional Instructions: Rapid strep is negative in the office; however we will send to the lab for confirmation; there is a small percentage chance that it can come back positive; if it is, we will call you in 2-3days; and your prescription will be call in to your pharmacy. However, there is NO indication for antibiotic at this time. -Increase your fluids and Vitamin C. -Oral rinses such as: Salt water gargles and/or may use topical anesthetic (eg. Chloraseptic spray) or lozenges to relieve dryness or throat pain. -Take tylenol and ibuprofen as needed for pain and fever as directed. 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 -Follow up with primary care provider in 2-3 days if condition is not improving or seek ER visit if your child starts breathing fast/has trouble breathing, is not drinking enough fluids, muffle voice, difficulty opening the mouth or will not wake up or will not interact with you. Patient Language: Cuban Prescriptions: No Action bupropion HCl 150 mg tablet extended release 24 hr 150 mg PO DAILY 1 mg-20 mcg (24)/75 mg (4) tablet 1 tablet PO DAILY Follow-up/Referrals: El[place],DOUG Stoll [Primary Care Provider] - Time of Disposition: 17:55
[2024-11-25 17:47] VITALS: BP 131/83; PULSE 108; RESP 16; TEMP 36.6; O2SAT 100
[2024-11-25 17:54] LABS: EDSTREPNEGPOS1 Negative (Negative)
== END 2024-11-25 17:57 | disposition home or self-care (01) ==
PROVIDERS: Emergency Provider Nurse Practitioner; PCP Nurse Practitioner
DX: J02.8 Acute pharyngitis due to other specified organisms (principal); B97.89 Other viral agents as the cause of diseases classified elsewhere
CPT/HCPCS: 87081; 87880; 99213; G0463

== ENCOUNTER 2025-02-12 13:55 | Outpatient (CLI) | payer BC, SELFPAY ==
--- NOTE | ~2025-02-12 | US_ITS ---
EXAMINATION:US venous doppler LE LT INDICATION:Left leg swelling TECHNIQUE: Multiple grayscale, color flow and Doppler images of the left lower extremity deep venous systems were obtained and reviewed. COMPARISON:No prior studies for comparison. FINDINGS: The common femoral, superficial femoral and popliteal veins demonstrate normal respiratory variation, augmentation and compressibility. Color flow is also seen within the posterior tibial, pe roneal, greater saphenous and profunda veins. IMPRESSION: 1: No lower extremity deep venous thrombosis. Reviewed, dictated and finalized at location A.
--- OUTSIDE RECORDS SUMMARY | 2025-02-12 14:48 | XMS_ITS | Clinical Summary ---
Author Organization [facility] Address [address] [place] [address] Care Team Providers Care Process Assistant Name Role Phone Haim Bush MD Unavailable Katie Pedro MD Primary Care Provider [phone] Source Comments [facility],non-owned Affiliates and Associated Physician Practices is amultiple site organization consisting of ambulatory clinics and hospital sitesin [place], [place], [place] and [place]. This disclosure is being madepursuant to the Care Everywhere program and may not contain all information available regarding this patient. Last updated 18.[facility] Allergies Active Allergy Reactions Criticality Noted Date Comments Penicillins Rash Medium 09/25/2019 Medications * This document contains information received from the source organization and may not represent a complete record from that organization. * Be aware that medications may not be up to date on this document. Alwaysverify current medications with the patient. azithromycin (ZITHROMAX) 250 MG tablet Take 2 tabs today, then 1 tab daily for next 4 days 6 tablet 9 Active Additional Information Patient not taking.Reported on 10/06/2019 Active Problems Problem Noted Date Diagnosed Date Major depressive disorder, single episode, moder ate 11/19/2017 Generalized anxiety disorder 11/19/2017 Self-injurious behavior 11/19/2017 Ganglion cyst of wrist 10/22/2015 Left wrist pain 10/19/2015 Ganglion cyst 10/19/2015 Immunizations Immunization Administration Dates Next Due INFLUENZA VACCINE, QUADR. 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 Gender Identity Not on file Sexual Orientation Not on file Last Filed Vital Signs Vital Sign Reading Time Taken Comments Blood Pressure 122/78 10/06/2019 12:49 PM SENIOR INSPECTOR Pulse 87 10/06/2019 12:49 PM SENIOR INSPECTOR Temperature 37.2 C (98.9 F) 10/06/2019 12:49 PM SENIOR INSPECTOR Respiratory Rate 16 10/06/2019 12:49 PM SENIOR INSPECTOR Oxygen Saturation 98% 10/06/2019 12:49 PM SENIOR INSPECTOR Inhaled Oxygen Concentration - - Weight 112 kg (247 lb) 10/06/2019 12:49 PM SENIOR INSPECTOR Height 157.5 cm (5' 2 ) 10/06/2019 12:49 PM SENIOR INSPECTOR Body Mass Index 45.18 10/06/2019 12:49 PM SENIOR INSPECTOR Plan of Treatment Health Maintenance Due Date Last Done Comments HIV SCREENING 2017 HPV VACCINE (1 - 3-dose series) 2017 CHLAMYDIA/GONORRHEA SCREENING 2018 MENINGOCOCCAL (Group B) VACC INE SHARED DECISION-MAKING (1 of 2 - Standard) 2018 HEPATITIS C SCREENING 09/26/2020 DTAP/TDAP/TD VACCINES (1 - Tdap) 2021 HEPATITIS B VACCINE (1 of 3 - 19+ 3-dose series) 2021 COVID-19 VACCINE (1 - 2023-2 5 season) 2024 DEPRESSION SCREENING 10/15/2024 INFLUENZA VACCINE (Season Ended) 2025 11/17/19 18 ZOSTER VACCINE (1 of 2) 2052 HIB VACCINE Aged Out No longer eligi ble based on patient's age to complete this topic MENINGOCOCCAL GROUPS A/C/Y/W VACCINE Aged Out No longer eligible b ased on patient's age to complete this topic PNEUMOCOCCAL VACCINE Aged Out No long er eligible based on patient's age to complete this topic Insurance [employer] Advance Directives * Full Code (Latest Code Status on File) Date Activated Date Inactivated Comments 11/16/2017 2:29 AM 11/20/2017 6:19 PM Care Teams Process Assistant Relationship Specialty Start Date End Date Katie Pedro MD [id number] [address] PCP - General Family Medicine 10/06/19 Haim Bush MD [id number] [facility] [address] [facility] [address] Family Medicine 07/13/16
--- OUTSIDE RECORDS SUMMARY | 2025-02-12 14:48 | XMS_ITS | Encounter Summary ---
Author Organization [facility] Address [address] [place] [address] Care Team Providers Care Commissary Worker Name Role Phone Nena Eisenberg NP Primary Care Provider +1 [phone] Encounter Details Date Type Department Care Team (Late st Contact Info) Description 02/26/2024 BuzzDasht Message Enc [facility] Family Medicine - [place] [address] [facility] [address] [place] [address] Nena Eisenberg NP [address] [place], [place] [address] Possible medication Social History Tobacco Use Types Packs/Day Years Used Date Smoking Tobacco: Never Passive Smoke Exposure: Never Smokeless Tobacco: Never Comments:The provider can pr ovide you with more information about quitting. 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
--- OUTSIDE RECORDS SUMMARY | 2025-02-12 14:48 | XMS_ITS | Encounter Summary ---
Author Organization [facility] Address [address] [place] [address] Care Team Providers Care Sample Checker Name Role Phone Nena Eisenberg NP Primary Care Provider [phone] [phone] Reason for Visit * Reason Onset Date Comments Orders 02/12/2025 Encounter Details Date Type Department Care Team (Late st Contact Info) Description 02/12/2025 Telephone [facility] Family Medicine - [place] [address] [id number] Nena Eisenberg NP [address] [address] Orders Social History Tobacco Use Types Packs/Day Years Used Date Smoking Tobacco: Never Passive Smoke Exposure: Never Smokeless Tobacco: Never Comments:The provider can pr ovide you with more information about quitting. Alcohol Use Standard Drinks/Week Comments Yes 0 (1 standard drink = 0.6 oz pur e alcohol) PHQ-2 Answer Date Recorded Patient Health Questionnaire-2 Score 0 12/22/2024 Comments No Sex and Gender Information Value Date Recorded Sex Assigned at Not on file Legal Sex Female 9:35 AM MASTER IN CHANCERY Gender Identity Not on file Sexual Orientation Not on file documented as of this encounter Progress Notes * Ilana Woods MA - 02/12/2025 9:19 AM CDT I changed the order to [facility] and will fax the order * Sindy Day - 02/12/2025 9:13 AM CDT Pia would like to go to [facility] for her ultrasound instead of [facility]. I don't know if youneed to change anything or not. I did give her the referral center's phone number. documented in this encounter Plan of Treatment Not on file documented as of this encounter Visit Diagnoses Not on filedocumented in this encounter Additional Health Concerns Assessment Noted Time PHQ-9 Depression Total Score: 8 10/09/20 24 9:22 AM MASTER IN CHANCERY documented as of this encounter Care Teams Sample Checker Relationship Specialty Start Date End Date Nena Eisenberg NP [address] [place] [address] PCP - General NURSE PRACTITIONER 10/20/20 documented as of this encounter
--- OUTSIDE RECORDS SUMMARY | 2025-02-12 14:48 | XMS_ITS | Encounter Summary ---
Author Organization [facility] Address [address] [place] [address] Care Team Providers Care Reliability Technologist Name Role Phone Nena Eisenberg NP Primary Care Provider [phone] [phone] Encounter Details Date Type Department Care Team (Late st Contact Info) Description 02/15/2022 Interact.io Message Enc [facility] Family Medicine - [place] [address] [facility] [address] [place] [phone] Nena Eisenberg, JO [address] [place] [address] [place] [address] Change to Setraline Social History Tobacco Use Types Packs/Day Years Used Date Smoking Tobacco: Never Smokeless Tobacco: Never Comments:The provider can pr ovide you with more information about quitting. Alcohol Use Standard Drinks/Week Comments Not Currently 0 (1 standard drink = 0.6 oz pur e alcohol) PHQ-2 Answer Date Recorded PHQ-2 Score - If the patient scores above 3, please move on to questions 3-9 4 12/16/2021 Comments No Sex and Gender Information Value Date Recorded Sex Assigned at Not on file Legal Sex Female 9:35 AM FEATHER WASHER Gender Identity Not on file Sexual Orientation Not on file documented as of this encounter Plan of Treatment Not on file documented as of this encounter Visit Diagnoses Not on filedocumented in this encounter Additional Health Concerns Infection Onset Date Last Indicated Resolved Time COVID-19 Rule Out 04/04/2022 04/04/2022 04/06/2022 2:39 AM CDT Assessment Noted Time PHQ-9 Depression Total Score: 17 022 10:26 AM FEATHER WASHER documented as of this encounter Care Teams Reliability Technologist Relationship Specialty Start Date End Date Nena Eisenberg NP [address] [place] [address] PCP - General NURSE PRACTITIONER 10/20/20 documented as of this encounter
--- OUTSIDE RECORDS SUMMARY | 2025-02-12 14:48 | XMS_ITS | Encounter Summary ---
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
--- OUTSIDE RECORDS SUMMARY | 2025-02-12 14:48 | XMS_ITS | Encounter Summary ---
Author Organization [facility] Address [address] [place] [address] Care Team Providers Care Winder Hand Name Role Phone Nena Eisenberg NP Primary Care Provider [phone] [phone] Encounter Details Date Type Department Care Team (Late st Contact Info) Description 04/03/2024 Stick and Playt Message Enc [facility] Medical [facility] Family Medicine - [place] [address] [facility] [address] [place] [address] Nena Eisenberg NP [address] [place], [place] [phone] One month follow up Social History Tobacco Use Types Packs/Day Years [...] on file Legal Sex Female 9:35 AM LAUNDRY ROUTEMAN Gender Identity Not on file Sexual Orientation Not on file documented as of this encounter Plan of Treatment Not on file documented as of this encounter Visit Diagnoses Not on filedocumented in this encounter Additional Health Concerns Assessment Noted Time PHQ-9 Depression Total Score: 17 024 10:45 AM CDT documented as of this encounter Care Teams Winder Hand Relationship Specialty Start Date End Date Nena Eisenberg NP [address] [place], [place] [id number] PCP - General NURSE PRACTITIONER 10/20/20 documented as of this encounter
--- OUTSIDE RECORDS SUMMARY | 2025-02-12 14:48 | XMS_ITS | Encounter Summary ---
Author Organization [facility] Address [address] [place] [address] Care Team Providers Care Naphtha Washing System Operator Name Role Phone Nena Eisenberg NP Primary Care Provider [phone] [phone] Encounter Details Date Type Department Care Team (Latest Contact Info) Description 02/11/2025 Travel Social History Tobacco Use Types Packs/Day Years [...] on file Legal Sex Female 9:35 AM PROFESSIONAL SERVICES CONSULTANT Gender Identity Not on file Sexual Orientation Not on file documented as of this encounter Plan of Treatment Not on file documented as of this encounter Visit Diagnoses Not on filedocumented in this encounter Additional Health Concerns Assessment Noted Time PHQ-9 Depression Total Score: 8 10/09/20 24 9:22 AM PROFESSIONAL SERVICES CONSULTANT documented as of this encounter Care Teams Naphtha Washing System Operator Relationship Specialty Start Date End Date Nena Eisenberg NP [address] [place] [address] PCP - General NURSE PRACTITIONER 10/20/20 documented as of this encounter
--- OUTSIDE RECORDS SUMMARY | 2025-02-12 14:48 | XMS_ITS | Clinical Summary ---
Author Organization [facility] Address [address] [place] [address] Care Team Providers Care Job Order Clerk Name Role Phone Nena Eisenberg NP Primary Care Provider +1 [phone] Allergies Active Allergy Reactions Criticality Noted Date Comments Penicillins Rash Medium 09/25/2019 Medications EPINEPHrine 0.3 MG/0.3ML injectionIndica tions:Hx of severe allergy Inject 0.3 mLs (0.3 mg total) into the muscle as needed for Anaphylaxis. 1 each 04/09/2024 Active JUNEL FE 24 1-20 MG-MCG(24) tablet Take 1 tablet by mouth daily. 09/06/2024 Active propranolol (INDERAL) 10 MG tabletIndicatio ns:Generalized anxiety disorder Take 1-2 tablets daily as needed for anxiety 30 tablet 10/09/2024 Active buPROPion XL (WELLBUTRIN XL) 300 MG 24 hr tabletIndicatio ns:Anxiety and depression TAKE 1 TABLET(300 MG) BY MOUTH DAILY 90 tablet 1 10/20/2024 Active Active Problems Problem Noted Date Diagnosed Date Generalized anxiety disorder 10/09/2024 Overview (10/09/2024): Feeling overly anxious and tearful but it is not sure why. She reports everything going on her life has been going fairly well. Denies any SI/HI. She is when she gets anxious for possible increase in the 140s. She has been working on stress relieving activities but has not been very beneficial. She does not believe it is a side effect from her bupropion as she has been taking for a while and tolerating well. She used to take sertraline in the past. Has not been on anything else for anxiety. Her TSH was checked two months ago and was wnl's. Assessment & Plan (10/09/2024 9:42 AM FINANCIAL ACCOUNTING ANALYST): With shared decision making we discussed treatment with medication and nonmedication options for anxiety. Patient interested in further medication management with stress living activities. We discussed daily or as needed medication for anxiety. We discussed trying a different SSRI, buspirone or PRN hydroxyzine or propranolol. Pt would like to try propranolol. Discussed how to take and side effects Patient to update me in a month how she is doing with use. Other fatigue 07/15/2024 Overview (07/15/2024): Further lab work was ordered to evaluate for fatigue however has not been done yet. Will draw while she is here today Assessment & Plan (07/15/2024 1:30 PM CDT): Will notify patient once lab work is back for further recommendations as can be multifactorial. Other insomnia 07/15/2024 Overview (07/15/2024): Has been having troubles falling and staying asleep. Reports his issues related to increased worry and having troubles shutting off her mind. Denies any symptoms of sleep apnea. Denies getting up often to use the restroom. Has used [id number]-[id number] sleep aids such as melatonin without relief. She is getting approximately 5 to 6 hours of sleep per night. Assessment & Plan (07/15/2024 1:24 PM CDT): We went over good sleep hygiene. Education given to patient on good sleep hygeine. We discussed CBT, [id number] medications that could be used for insomnia at this time. We will discuss further at future visit if needed. Subclinical hypothyroidism 07/15/2024 Overview (07/15/2024): Patient TSH noted subclinical hypothyroidism when checked in January of this year and patient has not had rechecked as instructed. She had forgotten. Patient has other labs that were ordered due to her complaints of chronic fatigue that have not been drawn. We will draw while she is here today. Assessment & Plan (07/15/2024 1:24 PM CDT): Rechecked today and will follow Class 3 severe obesity witho ut serious comorbidity with body mass index (BMI) of 50.0 to 59.9 in adult 07/07/2022 Assessment & Plan (07/15/2024 1:25 PM CDT): Encourage following a healthy well balance diet and staying active to assist with weight loss. Vitamin D deficiency 02/27/2022 Acne vulgaris 10/25/2020 Anxiety and depression 10/25/2020 Overview (07/15/2024): Patient is clinic taking Wellbutrin 300 mg daily for which she tolerates well however she does not feel it is as effective anymore. Denies any SI/HI. She is previously on sertraline 100 mg daily but she was wanting to titrate off of this medication as she did not feel it was beneficial. He is going to look into therapy however she is going to be switching insurance plans in the near future. Does have increased dressers as she is back in school. 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 She recently stopped her control to see if her anxiety and depression would improve. She has not noticed a change. She is currently not sexually active. Not currently in a relationship. Assessment & Plan (07/15/2024 1:29 PM CDT): Pt on Wellbutrin 300mg already. Will assess lab work first and once back will discuss and if no abnormal findings are found we discussed scheduling a follow up if wanting to discuss med changes. Encourage living activities. She is interested in therapy once she switches to a different insurance. She agrees with this plan. Resolved Problems Problem Noted Date Diagnosed Date Resolved Date Encounter for initial prescr iption of contraceptive pills 10/25/2020 07/15/2024 Encounters Date Type Department Care Team Description 02/12/2025 Telephone [facility] Family Medicine - [place] [address] [facility] [address] [place], [place] [phone] Nena Eisenberg NP Orders 02/11/2025 3:20 PM CDT Office Visit [address] [place] [address] Nena Eisenberg NP Leg Pain (Patient presents with c/o left calf pain, swelling x 3 days The day before calf started hurting she was having swelling in her second toe on the left foot, NKI) 02/11/2025 MyChart Message Enc [address] [place] [address] Nena Eisenberg NP Ultrasound 02/11/2025 Travel 12/22/2024 2:00 PM CDT Office Visit [address] [place] [address] Nena Eisenberg NP Earache (Patient presents with c/o right ear pain, itchy, and blood on q-tip.) 12/22/2024 Travel from Last 3 Months Immunizations Immunization Administration Dates Next Due Fluarix (IIV4) 08/09/2020 Fluzone (IIV3, Trivalent, 0. 5 ML Prefilled Syringe) 07/15/2024 Influenza Adult (Generic) 09/15/2023,,11/17/2017,2013 Menactra 07/02/2020 Tdap (Generic) 05/12/2014 Family History Medical History Relation Comments Hypertension Father Hypertension Maternal Grandmother Diabetes Paternal Grandfather Stroke Paternal Grandfather Cancer Paternal Grandmother Relation Status Comments Father Maternal Grandmother Paternal Grandfather Paternal Grandmother Social History Tobacco Use Types Packs/Day Years Used Date Smoking Tobacco: Never Passive Smoke Exposure: Never Smokeless Tobacco: Never Tobacco Cessation:Counseling Given: No Comments:The provider can provide you with more information about quitting. Alcohol Use Standard Drinks/Week Comments Yes 0 (1 standard drink = 0.6 oz pur e alcohol) PHQ-2 Answer Date Recorded Patient Health Questionnaire-2 Score 0 12/22/2024 Comments No Sex and Gender Information Value Date Recorded Sex Assigned at Not on file Legal Sex Female 9:35 AM FINANCIAL ACCOUNTING ANALYST Gender Identity Not on file Sexual Orientation Not on file Last Filed Vital Signs Vital Sign Reading Time Taken Comments Blood Pressure 94/66 02/11/2025 3:15 PM CDT Pulse 90 02/11/2025 3:15 PM CDT Temperature 36.9 C (98.5 F) 02/11/2025 3:15 PM CDT Respiratory Rate 18 02/11/2025 3:15 PM CDT Oxygen Saturation 99% 02/11/2025 3:15 PM CDT Inhaled Oxygen Concentration - - Weight 114.3 kg (252 lb) 02/11/2025 3:15 PM CDT Height 157.5 cm (5' 2 ) 02/11/2025 3:15 PM CDT Body Mass Index 46.09 02/11/2025 3:15 PM CDT Plan of Treatment Health Maintenance Due Date Last Done Comments HPV Vaccines (1 - 3-dose series) 2017 Meningococcal B Vaccine (1 o f 2 - Standard) 2018 Hepatitis C 2020 Hepatitis B Vaccines (1 of 3 - 19+ 3-dose series) 2021 DTaP, Tdap and Td Vaccines ( 2 - Td or Tdap) 05/12/2024 05/12/2014 COVID-19 Vaccine (3 - 2023-2 5 season) 2024 03/01/2021, 02/08/2021 Annual Physical 07/15/2025 07/15/2024, 07/07/2022, 10/25/2020 Cervical Cancer Screening Pa p Smear (Age 21 to 29) Every 3 Years 03/19/2027 03/19/2024 Cervical Cancer Screening 03/19/2027 Meningococcal Vaccine Completed 07/02/2020 PHQ-2 (Physician [place]) Completed 12/22/2024 Pneumococcal Vaccine: Pediatrics (0 to 5 Years) and At-Risk Patients (6 to 49 Years) Aged Out No longer eligible b ased on patient's age to complete this topic RSV Immunizations Under 20 Months Aged Out No longer eligible b ased on patient's age to complete this topic Procedures Procedure Name Priority Date/Time Associated Diagnosis Comments OUTSIDE CYTOPATH CERV/VAG IN TERPRET (PAP) (SCAN ORDER) 03/19/2024 from Last 3 Months or Most Recently Relevant to Health Maintenance Results * PAP SMEAR (SCAN ORDER) (03/19/2024) 03/19/2024 [facility] Scanned SCANNING Final Resu lt from Last 3 Months or Most Recently Relevant to Health Maintenance Insurance [facility] Care Teams Job Order Clerk Relationship Specialty Start Date End Date Nena Eisenberg NP [address] [place] [address] PCP - General NURSE PRACTITIONER 10/20/20
--- OUTSIDE RECORDS SUMMARY | 2025-02-12 14:48 | XMS_ITS | Encounter Summary ---
Author Organization [facility] Address [address] [place] [address] Care Team Providers Care Tar And Ammonia Pump Operator Name Role Phone Nena Eisenberg NP Primary Care Provider [phone] [phone] Encounter Details Date Type Department Care Team (Late st Contact Info) Description 02/11/2025 Concur Technologiest Message Enc [facility] Medical Group Family Medicine - [place] [address] [facility] [address] [place] [phone] Nena Eisenberg, HOOKMAN [address] [place] [address] Ultrasound Social History Tobacco Use Types Packs/Day Years [...] on file Legal Sex Female 9:35 AM JUNIOR ACCOUNTING CLERK Gender Identity Not on file Sexual Orientation Not on file documented as of this encounter Progress Notes * Nakia Vega MA - 02/12/2025 11:29 AM CDT Spoke with pt and advised to go to the ER if the pain is getting worse. She states that its not getting worse. She will look for the fax order since she works at . * Nena Eisenberg NP - 02/12/2025 11:12 AM CDT I would have her seek out ER care if its getting worse documented in this encounter Plan of Treatment Not on file documented as of this encounter Visit Diagnoses Not on filedocumented in this encounter Additional Health Concerns Assessment Noted Time PHQ-9 Depression Total Score: 8 10/09/20 24 9:22 AM JUNIOR ACCOUNTING CLERK documented as of this encounter Care Teams Tar And Ammonia Pump Operator Relationship Specialty Start Date End Date Nena Eisenberg NP [address] [place] [address] PCP - General NURSE PRACTITIONER 10/20/20 documented as of this encounter
--- OUTSIDE RECORDS SUMMARY | 2025-02-12 14:48 | XMS_ITS | Encounter Summary ---
Author Organization [facility] Address [address] [place] [address] Care Team Providers Care Material Handler 2Nd Shift Name Role Phone Nena Eisenberg NP Primary Care Provider +1 [phone] Encounter Details Date Type Department Care Team (Late st Contact Info) Description 02/20/2024 [place] Producet Message Enc [facility] Medical Group Family Medicine - [place] [address] [facility] [address] [place] [address] Nena Eisenberg NP [address] [place] [address] [place], [place] [phone] Thyroid levels question Social History Tobacco Use Types Packs/Day Years [...] on file Legal Sex Female 9:35 AM CABINETMAKER HELPER Gender Identity Not on file Sexual Orientation Not on file documented as of this encounter Plan of Treatment Not on file documented as of this encounter Visit Diagnoses Not on filedocumented in this encounter Additional Health Concerns Assessment Noted Time PHQ-9 Depression Total Score: 17 024 10:45 AM CDT documented as of this encounter Care Teams Material Handler 2Nd Shift Relationship Specialty Start Date End Date Nena Eisenberg NP [address] [place] [address] [place] [address] PCP - General NURSE PRACTITIONER 10/20/20 documented as of this encounter
--- OUTSIDE RECORDS SUMMARY | 2025-02-12 14:49 | XMS_ITS | Encounter Summary ---
Author Organization [facility] Address [address] [place] [address] Care Team Providers Care Rat Breeder Name Role Phone Nena Eisenberg NP Primary Care Provider [phone] [phone] Encounter Details Date Type Department Care Team (Late st Contact Info) Description 11/07/2024 Hythiamt Message Enc [facility] Medical Group Family Medicine - [place] [address] [facility] [address] [place], [place] [phone] Nena Eisenberg NP [address] [place] [address] [place], [place] [phone] Medication follow up Social History Tobacco Use Types Packs/Day Years Used Date Smoking Tobacco: Never Passive Smoke Exposure: Never Smokeless Tobacco: Never Comments:The provider can pr ovide you with more information about quitting. Alcohol Use Standard Drinks/Week Comments Yes 0 (1 standard drink = 0.6 oz pur e alcohol) PHQ-2 Answer Date Recorded Patient Health Questionnaire-2 Score 2 10/09/2024 Comments No Sex and Gender Information Value Date Recorded Sex Assigned at Not on file Legal Sex Female 9:35 AM CRYSTALLIZER OPERATOR Gender Identity Not on file Sexual Orientation Not on file documented as of this encounter Plan of Treatment Not on file documented as of this encounter Visit Diagnoses Not on filedocumented in this encounter Additional Health Concerns Assessment Noted Time PHQ-9 Depression Total Score: 8 10/09/20 24 9:22 AM CRYSTALLIZER OPERATOR documented as of this encounter Care Teams Rat Breeder Relationship Specialty Start Date End Date Nena Eisenberg NP [address] [place], [place] [phone] PCP - General NURSE PRACTITIONER 10/20/20 documented as of this encounter
--- OUTSIDE RECORDS SUMMARY | 2025-02-12 14:49 | XMS_ITS | Encounter Summary ---
Author Organization [facility] Address [address] [place] [address] Care Team Providers Care Extract Puller Name Role Phone Nena Eisenberg NP Primary Care Provider [phone] Encounter Details Date Type Department Care Team (Late st Contact Info) Description 10/31/2022 [employer] Message Enc [facility] Family Medicine - [place] [address] [facility] [address] [place] [address] [phone] Nena Eisenberg, JO [address] [place] [address] Virtual Appointment Social History Tobacco Use Types Packs/Day Years Used Date Smoking Tobacco: Never Smokeless Tobacco: Never Comments:The provider can pr ovide you with more information about quitting. Alcohol Use Standard Drinks/Week Comments Not Currently 0 (1 standard drink = 0.6 oz pur e alcohol) PHQ-2 Answer Date Recorded PHQ-2 Score - If the patient scores above 3, please move on to questions 3-9 0 07/07/2022 Comments No Sex and Gender Information Value Date Recorded Sex Assigned at Not on file Legal Sex Female 9:35 AM HOUSE PLAYER Gender Identity Not on file Sexual Orientation Not on file COVID-19 Exposure Response Date Recorded In the last 10 days, have yo u been in contact with someone who was confirmed or suspected to have Coronavirus/COVID-19? No / Unsure 10/02/2022 11:17 AM HOUSE PLAYER documented as of this encounter Plan of Treatment Not on file documented as of this encounter Visit Diagnoses Not on filedocumented in this encounter Additional Health Concerns Assessment Noted Time PHQ-9 Depression Total Score: 17 022 10:26 AM HOUSE PLAYER documented as of this encounter Care Teams Extract Puller Relationship Specialty Start Date End Date Nena Eisenberg NP [address] [place] [address] [place] [address] PCP - General NURSE PRACTITIONER 10/20/20 documented as of this encounter
--- OUTSIDE RECORDS SUMMARY | 2025-02-12 14:49 | XMS_ITS | Encounter Summary ---
Author Organization [facility] Address [address] [place] [address] Care Team Providers Care Rock Climbing Instructor Name Role Phone Nena Eisenberg NP Primary Care Provider [phone] Encounter Details Date Type Department Care Team (Late st Contact Info) Description 04/19/2022 [employer] Message Enc [facility] Family Medicine - [place] [address] 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 No / Unsure 04/04/2022 3:26 PM CDT documented as of this encounter Plan of Treatment Not on file documented as of this encounter Visit Diagnoses Not on filedocumented in this encounter Additional Health Concerns Assessment Noted Time PHQ-9 Depression Total Score: 17 12/16/ 022 10:26 AM COMPOSITE BOAT BUILDER documented as of this encounter Care Teams Rock Climbing Instructor Relationship Specialty Start Date End Date Nena Eisenberg NP [address] [place] [address] [place] [address] PCP - General NURSE PRACTITIONER 10/20/20 documented as of this encounter
--- OUTSIDE RECORDS SUMMARY | 2025-02-12 14:49 | XMS_ITS | Encounter Summary ---
Author Organization [facility] Address [address] [place] [address] Care Team Providers Care Electrical Power Engineer Name Role Phone Nena Eisenberg NP Primary Care Provider [phone] Encounter Details Date Type Department Care Team (Late st Contact Info) Description 11/14/2022 [employer] Message Enc [facility] Family Medicine - [place] [address] [facility] [address] [place] [address] [phone] Nena Eisenberg, JO [address] [place] [address] My eye Social History Tobacco Use Types Packs/Day Years [...] on file 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 No / Unsure 11/17/2022 10:46 AM PETROLEUM PRODUCTION ENGINEER documented as of this encounter Plan of Treatment Not on file documented as of this encounter Visit Diagnoses Not on filedocumented in this encounter Additional Health Concerns Assessment Noted Time PHQ-9 Depression Total Score: 17 022 10:26 AM PETROLEUM PRODUCTION ENGINEER documented as of this encounter Care Teams Electrical Power Engineer Relationship Specialty Start Date End Date Nena Eisenberg NP [address] [place] [address] PCP - General NURSE PRACTITIONER 10/20/20 documented as of this encounter
--- OUTSIDE RECORDS SUMMARY | 2025-02-12 14:49 | XMS_ITS | Encounter Summary ---
Author Organization [facility] Address [address] [place] [address] Care Team Providers Care Lamp Stack Developer Name Role Phone Nena Eisenberg NP Primary Care Provider [phone] Reason for Referral * Imaging (Urgent) - New Request Specialty Diagnoses / Procedures Referred By Danna t Referred To Contact RADIOLOGY Diagnoses Localized swelling of left lower extremity Procedures USV KWABENA DUPLEX LOW EXT LT Nena Eisenberg NP [address] [place] [address] Phone: tel: fax: Referral ID Status Reason Start Date Expiration Date V isits Requested Visits Authorized [id number] New Request 02/12/2025 02/12/2026 1 1 Reason for Visit * Reason Comments Leg Pain Patient presents wit h c/o left calf pain, swelling x 3 days The day before calf started hurting she was having swelling in her second toe on the left foot, NKI Encounter Details Date Type Department Care Team (Late st Contact Info) Description 02/11/2025 3:20 PM CDT Office Visit [facility] Family Medicine - [place] [address] [facility] [address] [place], [place] [address] Nena Eisenberg NP [address] [place] [address] Leg Pain (Patient presents with c/o left calf pain, swelling x 3 days The day before calf started hurting she was having swelling in her second toe on the left foot, NKI) Social History Tobacco Use Types Packs/Day Years [...] on file 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 Gender Identity Not on file Sexual Orientation Not on file documented as of this encounter Last Filed Vital Signs Vital Sign Reading [...] Mass Index 46.09 02/11/2025 3:15 PM CDT documented in this encounter Progress Notes * Ilana Barfield MA - 02/11/2025 3:20 PM CDTAddended by: ILANA BARFIELD on: 02/12/2025 09:19 AM Modules accepted: Orders * Nena Eisenberg NP - 02/11/2025 3:20 PM CDTAddended by: NENA EISENBERG on: 02/12/2025 10:01 AM Modules accepted: Orders * Nena Eisenberg NP - 02/11/2025 3:20 PM CDT Reason for Visit: Leg Pain (Patient presents with c/o left calf pain, swelling x 3 days The day before calf started hurting she was having swelling in her second toe on the left foot, NKI) History of Present Illness: Pia is a 24-year-old female who presents office with complaints of left calf swelling for the past 3 days. She reports her symptoms are starting to get a little bit better but she is here for evaluation. Patient does take YVETTE no history of DVT. Denies any redness ow warmth. Reports some mild pain/tightness in her calf with walking. Medications: Current Outpatient Medications: buPROPion XL (WELLBUTRIN XL) 300 MG 24 hr tablet, TAKE 1 TABLET(300 MG) BY MOUTH DAILY, Disp: 90 tablet, Rfl: 1 EPINEPHrine 0.3 MG/0.3ML injection, Inject 0.3 mLs (0.3 mg total) into the muscle as needed for Anaphylaxis., Disp: 1 each, Rfl: 0 JUNEL FE 24 1-20 MG-MCG(24) tablet, Take 1 tablet by mouth daily., Disp: , Rfl: propranolol (INDERAL) 10 MG tablet, Take 1-2 tablets daily as needed for anxiety, Disp: 30 tablet, Rfl: 0 Review of patient's allergies indicates: Allergen Reactions Penicillins Rash Past Medical History[1] OB History No obstetric history on file. Past Surgical History[2] Social History[3] Family History[4] ROS: Review of Systems Constitutional: Negative for chills, diaphoresis, fever, malaise/fatigue and weight loss. HENT: Negative for congestion, ear discharge, ear pain, hearing loss, nosebleeds, sinus pain, sore throat and tinnitus. Eyes: Negative for blurred vision, double vision, photophobia, pain, discharge and redness. Respiratory: Negative for cough, hemoptysis, sputum production, shortness of breath, wheezing and stridor. Cardiovascular: Negative for chest pain, palpitations, orthopnea, claudication, leg swelling and PND. Gastrointestinal: Negative for abdominal pain, blood in stool, constipation, diarrhea, heartburn, melena, nausea and vomiting. Genitourinary: Negative for dysuria, flank pain, frequency, hematuria and urgency. Musculoskeletal: Negative for back pain, falls, joint pain, myalgias and neck pain. Left calf pain and swelling- improving Skin: Negative for itching and rash. Neurological: Negative for dizziness, tingling, tremors, sensory change, speech change, focal weakness, seizures, loss of consciousness, weakness and headaches. Endo/Heme/Allergies: Negative for environmental allergies and polydipsia. Does not bruise/bleed easily. Psychiatric/Behavioral: Negative for depression, hallucinations, memory loss, substance abuse and suicidal ideas. The patient is not nervous/anxious and does not have insomnia. Physical Exam Constitutional: General: She is not in acute distress. Appearance: Normal appearance. She is not ill-appearing, toxic-appearing or diaphoretic. Cardiovascular: Rate and Rhythm: Normal rate and regular rhythm. Pulmonary: Effort: Pulmonary effort is normal. Musculoskeletal: Comments: Left calf mildly larger then right Pedal pulse 2+ Denies pain with dorsiflexion of calf Skin: General: Skin is warm and dry. Neurological: General: No focal deficit present. Mental Status: She is alert and oriented to person, place, and time. Psychiatric: Mood and Affect: Mood normal. Behavior: Behavior normal. Thought Content: Thought content normal. Judgment: Judgment normal. Filed Vitals: 02/11/25 1515 BP: 94/66 Pulse: 90 Resp: 18 Temp: 98.5 ??F (36.9 ??C) TempSrc: Core SpO2: 99% Weight: 114.3 kg (252 lb) Height: 1.575 m (5' 2 ) Assessment/Recommendations/Plan 1. Localized swelling of left lower extremity (Primary) -Will obtain a venous doppler to be sure symptoms are not related to a DVT. Pt does take a YVETTE. Discussed warning signs/symptoms if they occur to seek ER care. - USV KWABENA DUPLEX LOW EXT LT; Future - USV KWABENA DUPLEX LOW EXT LT Follow up: will notify pt once US is back. NENA EISENBERG NP 02/12/2025 10:00 AM [1] Past Medical History: Diagnosis Date Anxiety and depression Deliberate self-cutting [2] Past Surgical History: Procedure Laterality Date EXCISION CYST cyst removed left wrist [3] Social History Tobacco Use Smoking status: Never Passive exposure: Never Smokeless tobacco: Never Tobacco comments: The provider can provide you with more information about quitting. Vaping Use Vaping status: Never Used Substance Use Topics Alcohol use: Yes Drug use: Never [4] Family History Problem Relation Name Age of Onset Hypertension Father Zaki Hypertension Maternal Grandmother Sachi Cancer Paternal Grandmother Enma Diabetes Paternal Grandfather Don Stroke Paternal Grandfather Don documented in this encounter Plan of Treatment Scheduled Orders Name Type Priority Associated Diagnoses Orde r Schedule USV KWABENA DUPLEX LOW EXT LT US VASC CATHRYN Localized swelling of left lower extremity Expected: 02/12/2025, Expires: 02/12/2026 documented as of this encounter Visit Diagnoses Diagnosis Localized swelling of left lower extremity- Primary documented in this encounter Additional Health Concerns Assessment Noted Time PHQ-9 Depression Total Score: 8 10/09/20 24 9:22 AM INTERNET RESEARCHER documented as of this encounter Care Teams Lamp Stack Developer Relationship Specialty Start Date End Date Nena Eisenberg NP [address] [place] [address] PCP - General NURSE PRACTITIONER 10/20/20 documented as of this encounter
== END 2025-02-12 13:56 | disposition home or self-care (01) ==
LOC: ANHIMG 13:59
PROVIDERS: Visit Provider Nurse Practitioner
DX: R22.42 Localized swelling, mass and lump, left lower limb (principal)
CPT/HCPCS: 93971